=== PATIENT | male | born 1995 | race Caucasian/White ===

== ENCOUNTER → 2025-01-29 | Outpatient (BNVA) | payer OTHER, SELFPAY | END | disposition home or self-care (01) | PROVIDERS: PCP Family Medicine; Referring Provider Family Medicine; Visit Provider Urology | DX: N47.1 Phimosis (principal); E66.01 Morbid (severe) obesity due to excess calories; Z68.41 Body mass index [BMI] 40.0-44.9, adult; Z87.891 Personal history of nicotine dependence | CPT/HCPCS: 81003; 99203; G0463 ==

== ENCOUNTER 2025-05-03 12:50 | Emergency (ER) | payer OTHER, SELFPAY ==
[2025-05-03 12:50] VITALS: BMI 43.0
[2025-05-03 12:57] VITALS: BP 164/113; PULSE 109; RESP 21; TEMP 37.1; O2SAT 98
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
[2025-05-03] MEDS: HYDROcodone/APAP 5/325 TABLET 1 TAB PO (13:16)
[2025-05-03] MEDS: DIPHTH,PERTUSS(ACELL),TET VAC 0.5 ML SYR- ADULT IMi (13:18)
[2025-05-03] MEDS: ONDANSETRON ODT 4 MG TABRAP PO (13:18)
--- NOTE | 2025-05-03 15:37 | PC.NURSE ---
cock up splint applied to pts right wrist. pt verbalized understanding of reapplication and P.R.I.C.E in regards to wrist/elbow
[2025-05-03 15:38] VITALS: BP 165/92; PULSE 88; RESP 18; O2SAT 99
--- NOTE | 2025-05-04 00:48 | PRELIM_ITS ---
RADIOGRAPHS OF THE RIGHT FOREARM (2 VIEWS): May 03, 2025 1307 hours Clinical History: trauma Comparison: No prior study is available for comparison. Findings: There is no evidence of fracture or dislocation. The radius and ulna are intact. Their articulations are normally maintained. The soft tissues are unremarkable. IMPRESSION: No evidence of fracture or dislocation. Report Electronically Signed By: Champ Cleary 05/04/2025 12:48:20 AM [EST]
--- NOTE | 2025-05-04 00:49 | PRELIM_ITS ---
Radiographs of the right hand (2 views). May 03, 2025 1307 hours Clinical history: Trauma Comparison: No prior study is available for comparison. Findings: There is no evidence of fracture or dislocation. The visualized bones are of normal configuration and density. The visualized joints are normal in configuration and alignment. The periarticular soft tissues are normal. Impression: No evidence of fracture or dislocation. Report Electronically Signed By: Champ Cleary 05/04/2025 12:48:25 AM [EST]
== END 2025-05-03 15:42 | disposition home or self-care (01) ==
PROVIDERS: Emergency Provider Emergency Medicine; PCP Family Medicine
DX: S67.41XA Crushing injury of right wrist and hand, initial encounter (principal); S40.021A Contusion of right upper arm, initial encounter; V88.9XXA Person injured in other specified (collision)(noncollision) transport accidents involving nonmotor vehicle, nontraffic, initial encounter
CPT/HCPCS: 73090; 73120; 90471; 90715; 99283; Q0162; A9270

== ENCOUNTER 2025-06-06 19:29 | Emergency (ER) | payer BC, SELFPAY ==
[2025-06-06 19:30] VITALS: BMI 42.1
[2025-06-06 19:49] VITALS: BP 145/92; PULSE 111; RESP 20; TEMP 36.6; O2SAT 97
--- NOTE | 2025-06-06 19:53 | XR_ITS ---
EXAMINATION: Right ankle 2 views TECHNIQUE: AP lateral right ankle 2 views Date and time: June 06, 2025, 2014 hours INDICATIONS: Injury of the ankle today, ankle pain. FINDINGS: No acute fracture. No dislocation No foreign body IMPRESSION: No acute fracture
[2025-06-06 21:48] VITALS: BP 128/85; PULSE 96; RESP 18; TEMP 36.7; O2SAT 99
--- NOTE | 2025-06-06 21:55 | PD.EDANKLE ---
Lower Extremity Injury RME/HPI General Chief Complaint: Ankle/Foot Injury Stated Complaint: I ROLLED MY RIGHT ANKLE Time Seen by Provider: 06/06/25 19:51 Arrival date/time: 06/06/25 19:29 This is a case of 30-year-old male with no medical history came in the emergency room due to ankle injury history of present illness started 1 hour prior to arrival in the emergency room patient was walking accidentally rolled over his right ankle and fell sustaining pain and swelling due to worsening of the symptoms this patient decided to sought consult here in the emergency room no loss of consciousness denies any head neck chest or abdominal injury Limitations: no limitations Related Data Previous Rx's ?Medication ?Instructions ?Recorded hydrocodone 5 mg-acetaminophen 325 1 tab PO Q6H PRN pain #7 tabs 05/03/25 mg tablet hydrocodone 5 mg-acetaminophen 325 1 tab PO Q6H PRN pain #16 tabs 25 mg tablet hydrocodone 5 mg-acetaminophen 325 1 tab PO Q6H PRN pain #16 tabs 06/06/25 mg tablet Allergies Allergy/AdvReac Type Severity Reaction Status Date / Time ibuprofen Allergy Severe Hives Verified 06/06/25 19:30 Review of Systems Review of Systems Systems Reviewed: All systems reviewed, normal except as documented Constitutional Constitutional: Reports system reviewed and no additional complaints, except as documented and Reports as per HPI Cardiovascular Cardiovascular: Reports system reviewed and no additional complaints, except as documented and Reports as per HPI Respiratory Respiratory: Reports system reviewed and no additional complaints, except as documented and Reports as per HPI Gastrointestinal Gastrointestinal: Reports system reviewed and no additional complaints, except as documented and Reports as per HPI Musculoskeletal Musculoskeletal: Reports system reviewed and no additional complaints, except as documented, Reports as per HPI and Reports other (Right ankle pain) Neurologic Neurologic: Reports system reviewed and no additional complaints, except as documented and Reports as per HPI Past Medical History Social History SMOKING STATUS: Never smoker ED Exam General Limitations: Present no limitations General appearance: Present alert, in no apparent distress and other (Patient is awake alert oriented not in distress nontoxic looking well-hydrated well-nourished) Head Head exam: Present atraumatic, normocephalic and normal inspection Eye Eye exam: Present normal appearance, PERRL and EOMI ENT ENT exam: Present normal exam, normal oropharynx and mucous membranes moist Neck Neck exam: Present normal inspection, full ROM and trachea midline; Absent tenderness, meningismus, lymphadenopathy or thyromegaly Chest Chest inspection: Present normal inspection and symmetric chest wall rise; Absent tenderness Respiratory Respiratory exam: Present normal lung sounds bilaterally; Absent respiratory distress, wheezes, stridor, accessory muscle use or prolonged expiratory phase Cardiovascular Cardiovascular exam: Present regular rate, normal rhythm and normal heart sounds; Absent bradycardia, tachycardia, irregular rhythm, systolic murmur or diastolic murmur Abdominal Exam Abdominal exam: Present soft and normal bowel sounds; Absent distention, tenderness, guarding, rebound, rigidity, diminished bowel sounds, hyperactive bowel sounds, hypoactive bowel sounds or organomegaly Extremities Exam Extremities exam: Present normal inspection and full ROM Expanded Lower Extremity Exam Lower leg exam: Present tenderness (Mild to moderate tenderness on the right ankle), swelling (Mild swelling) and other (ROM limited due to pain pulses were full and equal capillary refill less than 2 seconds sensory intact negative Joann signs negative Chávez signs no calf tenderness); Absent abrasion, laceration, ecchymosis, deformity, crepitus, dislocation, erythema, palpable cord, Homans' sign or Achilles tendon intact Back Exam Back exam: Present normal inspection and full ROM Neurological Exam Neurological exam: Present alert, oriented X3, CN II-XII intact, reflexes normal and other (Unable to assess gait due to pain in the right ankle); Absent normal gait or motor sensory deficit Psychiatric Psychiatric exam: Present normal affect and normal mood Skin Skin exam: Present warm, dry, intact and normal color Course Quality Measures none Orders Category Date Time Status XR ankle RT 2V Stat Exams 06/06/25 19:53 Completed Vital Signs Vital signs: Vital Signs Temperature 97.9 F 06/06/25 19:49 Pulse Rate 111 H 06/06/25 19:49 Respiratory Rate 20 06/06/25 19:49 Blood Pressure 145/92 H 06/06/25 19:49 Pulse Oximetry (%) 97 06/06/25 19:49 Oxygen Delivery Method Room Air 06/06/25 19:49 Oxygen saturation is 97% in room air Extremity Injury, Lower MDM Narrative MDM Narrative:: This is a case of 30-year-old male with no medical history came in the emergency room due to ankle injury history of present illness started 1 hour prior to arrival in the emergency room patient was walking accidentally rolled over his right ankle and fell sustaining pain and swelling due to worsening of the symptoms this patient decided to sought consult here in the emergency room no loss of consciousness denies any head neck chest or abdominal injury physical examination patient is awake alert oriented not in distress nontoxic looking well-hydrated well-nourished noted mild to moderate tenderness on the right ankle with mild swelling no crepitation no deformity no cellulitis ROM limited neurovascular is intact x-ray showed no fracture no dislocation patient will continue his ankle brace RICE treatment will continue by the patient patient was prescribed with [place] for pain for any worsening symptoms or any emergent concern return precaution in the ER is advised patient was also advised to follow-up with PCP and if symptoms persist needs to see an Ortho for possible MRI to rule out ligament injury Patient was discharged with comfortable condition walking with stable gait. Patient verbalized no further complains explained diagnosis and answered patient question. Patient is comfortable with the proposed management plan including the need to follow up with his/her primary care physician and any specialist if applicable Discussed patient for any urgent condition or worsening sx, He/She needed to go to emergency room immediately or call 911. Patient acknowledge the responsibility to follow up as instructed and to monitor her/his symptoms. For any persistence of the symptoms for more than 3-5 days return precaution advised. Discussed the result of the test and was given printed discharge instruction Patient data External records reviewed:: [facility] previous records Clinical information provided by:: patient Social determinants that could affect healthcare access:: none Patient has the following chronic illnesses:: None How is presenting disease/condition affected by chronic disease/condition?: no chronic disease Evaluation data The following diagnostics were reviewed and interpreted by me:: radiology exam(s) Lab and/or radiology exams considered but not ordered:: Reviewed Interpretation Summary: Reviewed Medications / Prescriptions Medications or Prescriptions considered but not ordered:: Given Medication administrations:: Given Consultations Consultation(s) initiated? (list below): No Diagnosis Extremity Injury, Lower Differential Diagnosis: ankle sprain and strain Most likely diagnosis given after review of the tests above:: Right ankle sprain Admission Indicated Admission indicated?: not indicated Explain why admission is indicated or not indicated:: Not indicated Admission Request Was there a request for admission?: No Admission Attestation Admission request attestation: Not indicated Disposition Plan Disposition Plan: Discharge Discharge Attestation Discharge Attestation: The patient and all family members were given an opportunity to ask questions and understood the discharge instructions. Discharge instructions specifically effects, indications for sooner follow up or return to the emergency department, and the expected course of current diagnosis. Patient condition: Stable Discharge Plan Plan Patient Disposition: HOME (Self Care) Patient condition on transfer: Stable Prescriptions/Referrals Prescriptions/Med Rec: New hydrocodone-acetaminophen 5-325 mg tablet 1 tab PO Q6H MDD max 4 tabs per day PRN (Reason: pain) Qty: 16 0RF hydrocodone-acetaminophen 5-325 mg tablet 1 tab PO Q6H MDD max 4 tabs per day PRN (Reason: pain) Qty: 16 0RF No Action hydrocodone-acetaminophen 5-325 mg tablet 1 tab PO Q6H MDD 4 PRN (Reason: pain) Qty: 7 0RF Referrals: Mary Doherty MD [Primary Care Provider, Family Practice] - In 1 week Problem List Clinical Impression: Right ankle sprain Patient/Caregiver Discharge Instructions Education Materials: ED MIRIAM Wrap, ED Ankle Sprain (Adult), ED RICE Additional Instructions: Follow-up with your primary care physician in 2 days for reevaluation worsening symptoms or any emergent condition call 911 or go to the nearest emergency room if symptoms persist needs to see an orthopedic surgeon for possible MRI to rule out ligament injury ice pack every 2 hours for 20 minutes for 24 hours then alternate with warm compress keep the ankle brace in place until cleared by primary care physician no weightbearing on the right ankle elevate to decrease swelling Print Language: Angolan Stand Alone Forms: Danette Award Info., Patient Portal Info Letter PA/AKILA Supervising Physician OSIEL/AKIAL Supervising Physician: Dr Miladys De La Rosa
== END 2025-06-06 21:57 | disposition home or self-care (01) ==
PROVIDERS: Emergency Provider Emergency Medicine; PCP Family Medicine
DX: S93.401A Sprain of unspecified ligament of right ankle, initial encounter (principal); X50.1XXA Overexertion from prolonged static or awkward postures, initial encounter; Y93.01 Activity, walking, marching and hiking
CPT/HCPCS: 73600; 99283